=== PATIENT | male | born 1965 | race Hispanic/Latino ===

== ENCOUNTER 2020-09-30 10:32 | Emergency (ER) | payer MEDICARE ==
[2020-09-30] MEDS ORDERED: SODIUM CHLORIDE 0.9% 1000 ML 1,000 ML IV ONE (11:32)
[2020-09-30] MEDS ORDERED: NALOXONE 0.4 MG/1 ML INJ IV ONE (11:33)
--- NOTE | 2020-09-30 11:37 | Emergency Department Report ---
HPI - General Chief Complaint: Altered Mental Status Time Seen by Provider: 09/30/20 11:21 - HPI HPI: 55-year-old male with history of hypertension and substance abuse with frequent falls brought in by EMS from [facility] due to altered mental status. The patient was a voluntary admission for substance abuse and according to the EMS report staff found him on the ground at approximately 2 AM this morning. He is found to be altered but was assisted back to his room but with unsteady gait. The patient denied any pain or sy mptoms. Blood sugar per EMS was 114. When I speak to the patient, he is extremely somnolent and with slurred speech but when prompted persistently he is oriented x4. He admits to consuming alcohol. He is very difficult to understand due to his mumbling/slurred speech. He has no other obvious co mplaints or symptoms although details of the HPI are highly limited due to his current clinical condition. ED Past Medical Hx - Past Medical History Previous Medical History?: Yes Hx Hypertension: Yes Additional medical history: Substance abuse, frequent falls ED Review of Systems ROS: Stated complaint: FALL/MEDICAL CLEARANCE Other details as noted in HPI Comment: Unobtainable due to pts medical conditions Physical Exam - Physical Exam Vital Signs: Vital Signs 09/30/20 11:07 Temperature 97.5 F L Pulse Rate 71 Respiratory 16 Rate Blood Pressure 105/53 [Left] O2 Sat by Pulse 94 Oximetry Physical Exam: GENERAL: Well developed and well nourished. Extremely somnolent but arousable to very loud voice or firm touch. HEAD: Normocephalic. No obvious signs of trauma. ENT: Very dry mucous membranes. Plethoric face. EYES: Extraocular movements are intact. Pupils are constricted but reactive to light bilaterally. NECK: Supple. Full ROM is intact. Trachea is midline. LUNGS: Nonlabored breathing. Equal chest rise bilaterally. Clear to auscultation bilaterally. CARDIOVASCULAR: Regular rate and rhythm. No murmurs or rubs. VASCULAR: Cap refill < 2 seconds ABDOMEN: Abdomen is soft and nondistended. There is no significant tenderness, guarding or rebound. SKIN: Skin is warm and dry. There are nonspecific excoriated scattered erythematous papules noted to the bilateral lower aspects of the abdomen in the skin folds. NEURO: Patient is extremely somnolent but arousable to loud voice, firm touch, or pain. He is oriented x4 when prompted persistently to answer. He has slurred speech. Otherwise parts person II-XII are grossly intact. No focal deficits. Normal motor and sensory exam throughout. Gait exam deferred MUSCULOSKELETAL: No obvious deformities. No significant tenderness. Normal ROM t hroughout. BACK/SPINE: No midline tenderness or step-offs of the C/T/L spine. No costovertebral angle tenderness. ED Course Vital Signs 09/30/20 11:07 Temperature 97.5 F L Pulse Rate 71 Respiratory 16 Rate Blood Pressure 105/53 [Left] O2 Sat by Pulse 94 Oximetry ED Medical Decision Making - Lab Data Result diagrams: 09/30/20 12:16 09/30/20 12:16 Lab Results 09/30/20 09/30/20 09/30/20 Range/Units 12:16 12:16 12:16 WBC 9.5 (4.5-11.0) K/mm3 RBC 3.79 (3.65-5.03) M/mm3 Hgb 13.1 (11.8-15.2) gm/dl Hct 37.6 (35.5-45.6) % MCV 99 H (84-94) fl MCH 35 H (28-32) pg MCHC 35 H (32-34) % RDW 13.4 (13.2-15.2) % Plt Count 209 (140-440) K/mm3 Lymph % (Auto) 16.5 (13.4-35.0) % [place] % (Auto) 12.2 H (0.0-7.3) % Eos % (Auto) 2.9 (0.0-4.3) % Baso % (Auto) 0.6 (0.0-1.8) % Lymph # (Auto) 1.6 (1.2-5.4) K/mm3 [place] # (Auto) 1.2 H (0.0-0.8) K/mm3 Eos # (Auto) 0.3 (0.0-0.4) K/mm3 Baso # (Auto) 0.1 (0.0-0.1) K/mm3 Seg Neutrophils % 67.8 (40.0-70.0) % Seg Neutrophils # 6.5 (1.8-7.7) K/mm3 PT 14.5 (12.2-14.9) Sec. INR 1.08 (0.87-1.13) APTT 30.3 (24.2-36.6) Sec. Sodium 143 (137-145) mmol/L Potassium 3.6 (3.6-5.0) mmol/L Chloride 105.4 (98-107) mmol/L Carbon Dioxide 27 (22-30) mmol/L Anion Gap 14 mmol/L BUN 14 (9-20) mg/dL Creatinine 0.7 L (0.8-1.3) mg/dL Estimated GFR > 60 ml/min BUN/Creatinine Ratio 20 % Glucose 78 (75-100) mg/dL POC Glucose (70-105) mg/dL Calcium 9.3 (8.4-10.2) mg/dL Magnesium 2.10 (1.7-2.3) mg/dL Total Bilirubin 0.40 (0.1-1.2) mg/dL Direct Bilirubin < 0.2 (0-0.2) mg/dL Indirect Bilirubin 0.2 mg/dL AST 26 (5-40) units/L ALT 25 (7-56) units/L Alkaline Phosphatase 78 (35-129) units/L Ammonia (25-60) umol/L Troponin T < 0.010 (0.00-0.029) ng/mL Total Protein 6.6 (6.3-8.2) g/dL Albumin 4.1 (3.9-5) g/dL Albumin/Globulin Ratio 1.6 % Lipase 39 (13-60) units/L Urine Color (Yellow) Urine Turbidity (Clear) Urine pH (5.0-7.0) Ur Specific [place] (1.003-1.030) Urine Protein (Negative) mg/dL Urine Glucose (UA) (Negative) mg/dL Urine Ketones (Negative) mg/dL Urine Blood (Negative) Urine Nitrite (Negative) Urine Bilirubin (Negative) Urine Urobilinogen (<2.0) mg/dL Ur Leukocyte Esterase (Negative) Urine WBC (Auto) (0.0-6.0) /HPF Urine RBC (Auto) (0.0-6.0) /HPF Urine Mucus /HPF Salicylates (2.8-20.0) mg/dL Urine Opiates Screen Urine Methadone Screen Acetaminophen (10.0-30.0) ug/mL Ur Barbiturates Screen Ur Phencyclidine Scrn Ur Amphetamines Screen U Benzodiazepines Scrn Urine Cocaine Screen U Marijuana (THC) Screen Drugs of Abuse Note Plasma/Serum Alcohol (0-0.07) % 09/30/20 09/30/20 09/30/20 Range/Units 12:16 12:16 12:16 WBC (4.5-11.0) K/mm3 RBC (3.65-5.03) M/mm3 Hgb (11.8-15.2) gm/dl Hct (35.5-45.6) % MCV (84-94) fl MCH (28-32) pg MCHC (32-34) % RDW (13.2-15.2) % Plt Count (140-440) K/mm3 Lymph % (Auto) (13.4-35.0) % [place] % (Auto) (0.0-7.3) % Eos % (Auto) (0.0-4.3) % Baso % (Auto) (0.0-1.8) % Lymph # (Auto) (1.2-5.4) K/mm3 [place] # (Auto) (0.0-0.8) K/mm3 Eos # (Auto) (0.0-0.4) K/mm3 Baso # (Auto) (0.0-0.1) K/mm3 Seg Neutrophils % (40.0-70.0) % Seg Neutrophils # (1.8-7.7) K/mm3 PT (12.2-14.9) Sec. INR (0.87-1.13) APTT (24.2-36.6) Sec. Sodium (137-145) mmol/L Potassium (3.6-5.0) mmol/L Chloride (98-107) mmol/L Carbon Dioxide (22-30) mmol/L Anion Gap mmol/L BUN (9-20) mg/dL Creatinine (0.8-1.3) mg/dL Estimated GFR ml/min BUN/Creatinine Ratio % Glucose (75-100) mg/dL POC Glucose (70-105) mg/dL Calcium (8.4-10.2) mg/dL Magnesium (1.7-2.3) mg/dL Total Bilirubin (0.1-1.2) mg/dL Direct Bilirubin (0-0.2) mg/dL Indirect Bilirubin mg/dL AST (5-40) units/L ALT (7-56) units/L Alkaline Phosphatase (35-129) units/L Ammonia 28.0 (25-60) umol/L Troponin T (0.00-0.029) ng/mL Total Protein (6.3-8.2) g/dL Albumin (3.9-5) g/dL Albumin/Globulin Ratio % Lipase (13-60) units/L Urine Color (Yellow) Urine Turbidity (Clear) Urine pH (5.0-7.0) Ur Specific [place] (1.003-1.030) Urine Protein (Negative) mg/dL Urine Glucose (UA) (Negative) mg/dL Urine Ketones (Negative) mg/dL Urine Blood (Negative) Urine Nitrite (Negative) Urine Bilirubin (Negative) Urine Urobilinogen (<2.0) mg/dL Ur Leukocyte Esterase (Negative) Urine WBC (Auto) (0.0-6.0) /HPF Urine RBC (Auto) (0.0-6.0) /HPF Urine Mucus /HPF Salicylates < 0.3 L (2.8-20.0) mg/dL Urine Opiates Screen Urine Methadone Screen Acetaminophen 5.0 L (10.0-30.0) ug/mL Ur Barbiturates Screen Ur Phencyclidine Scrn Ur Amphetamines Screen U Benzodiazepines Scrn Urine Cocaine Screen U Marijuana (THC) Screen Drugs of Abuse Note Plasma/Serum Alcohol (0-0.07) % 09/30/20 09/30/20 09/30/20 Range/Units 12:16 16:25 17:53 WBC (4.5-11.0) K/mm3 RBC (3.65-5.03) M/mm3 Hgb (11.8-15.2) gm/dl Hct (35.5-45.6) % MCV (84-94) fl MCH (28-32) pg MCHC (32-34) % RDW (13.2-15.2) % Plt Count (140-440) K/mm3 Lymph % (Auto) (13.4-35.0) % [place] % (Auto) (0.0-7.3) % Eos % (Auto) (0.0-4.3) % Baso % (Auto) (0.0-1.8) % Lymph # (Auto) (1.2-5.4) K/mm3 [place] # (Auto) (0.0-0.8) K/mm3 Eos # (Auto) (0.0-0.4) K/mm3 Baso # (Auto) (0.0-0.1) K/mm3 Seg Neutrophils % (40.0-70.0) % Seg Neutrophils # (1.8-7.7) K/mm3 PT (12.2-14.9) Sec. INR (0.87-1.13) APTT (24.2-36.6) Sec. Sodium (137-145) mmol/L Potassium (3.6-5.0) mmol/L Chloride (98-107) mmol/L Carbon Dioxide (22-30) mmol/L Anion Gap mmol/L BUN (9-20) mg/dL Creatinine (0.8-1.3) mg/dL Estimated GFR ml/min BUN/Creatinine Ratio % Glucose (75-100) mg/dL POC Glucose 82 (70-105) mg/dL Calcium (8.4-10.2) mg/dL Magnesium (1.7-2.3) mg/dL Total Bilirubin (0.1-1.2) mg/dL Direct Bilirubin (0-0.2) mg/dL Indirect Bilirubin mg/dL AST (5-40) units/L ALT (7-56) units/L Alkaline Phosphatase (35-129) units/L Ammonia (25-60) umol/L Troponin T (0.00-0.029) ng/mL Total Protein (6.3-8.2) g/dL Albumin (3.9-5) g/dL Albumin/Globulin Ratio % Lipase (13-60) units/L Urine Color Yellow (Yellow) Urine Turbidity Clear (Clear) Urine pH 6.0 (5.0-7.0) Ur Specific [place] 1.012 (1.003-1.030) Urine Protein <15 mg/dl (Negative) mg/dL Urine Glucose (UA) Neg (Negative) mg/dL Urine Ketones Neg (Negative) mg/dL Urine Blood Neg (Negative) Urine Nitrite Neg (Negative) Urine Bilirubin Neg (Negative) Urine Urobilinogen < 2.0 (<2.0) mg/dL Ur Leukocyte Esterase Neg (Negative) Urine WBC (Auto) < 1.0 (0.0-6.0) /HPF Urine RBC (Auto) 2.0 (0.0-6.0) /HPF Urine Mucus Few /HPF Salicylates (2.8-20.0) mg/dL Urine Opiates Screen Urine Methadone Screen Acetaminophen (10.0-30.0) ug/mL Ur Barbiturates Screen Ur Phencyclidine Scrn Ur Amphetamines Screen U Benzodiazepines Scrn Urine Cocaine Screen U Marijuana (THC) Screen Drugs of Abuse Note Plasma/Serum Alcohol < 0.01 (0-0.07) % 09/30/20 Range/Units 17:53 WBC (4.5-11.0) K/mm3 RBC (3.65-5.03) M/mm3 Hgb (11.8-15.2) gm/dl Hct (35.5-45.6) % MCV (84-94) fl MCH (28-32) pg MCHC (32-34) % RDW (13.2-15.2) % Plt Count (140-440) K/mm3 Lymph % (Auto) (13.4-35.0) % [place] % (Auto) (0.0-7.3) % Eos % (Auto) (0.0-4.3) % Baso % (Auto) (0.0-1.8) % Lymph # (Auto) (1.2-5.4) K/mm3 [place] # (Auto) (0.0-0.8) K/mm3 Eos # (Auto) (0.0-0.4) K/mm3 Baso # (Auto) (0.0-0.1) K/mm3 Seg Neutrophils % (40.0-70.0) % Seg Neutrophils # (1.8-7.7) K/mm3 PT (12.2-14.9) Sec. INR (0.87-1.13) APTT (24.2-36.6) Sec. Sodium (137-145) mmol/L Potassium (3.6-5.0) mmol/L Chloride (98-107) mmol/L Carbon Dioxide (22-30) mmol/L Anion Gap mmol/L BUN (9-20) mg/dL Creatinine (0.8-1.3) mg/dL Estimated GFR ml/min BUN/Creatinine Ratio % Glucose (75-100) mg/dL POC Glucose (70-105) mg/dL Calcium (8.4-10.2) mg/dL Magnesium (1.7-2.3) mg/dL Total Bilirubin (0.1-1.2) mg/dL Direct Bilirubin (0-0.2) mg/dL Indirect Bilirubin mg/dL AST (5-40) units/L ALT (7-56) units/L Alkaline Phosphatase (35-129) units/L Ammonia (25-60) umol/L Troponin T (0.00-0.029) ng/mL Total Protein (6.3-8.2) g/dL Albumin (3.9-5) g/dL Albumin/Globulin Ratio % Lipase (13-60) units/L Urine Color (Yellow) Urine Turbidity (Clear) Urine pH (5.0-7.0) Ur Specific [place] (1.003-1.030) Urine Protein (Negative) mg/dL Urine Glucose (UA) (Negative) mg/dL Urine Ketones (Negative) mg/dL Urine Blood (Negative) Urine Nitrite (Negative) Urine Bilirubin (Negative) Urine Urobilinogen (<2.0) mg/dL Ur Leukocyte Esterase (Negative) Urine WBC (Auto) (0.0-6.0) /HPF Urine RBC (Auto) (0.0-6.0) /HPF Urine Mucus /HPF Salicylates (2.8-20.0) mg/dL Urine Opiates Screen Negative Urine Methadone Screen Negative Acetaminophen (10.0-30.0) ug/mL Ur Barbiturates Screen Negative Ur Phencyclidine Scrn Negative Ur Amphetamines Screen Negative U Benzodiazepines Scrn Positive Urine Cocaine Screen Negative U Marijuana (THC) Screen Negative Drugs of Abuse Note Disclamer Plasma/Serum Alcohol (0-0.07) % - EKG Data -: EKG Interpreted by Ga - EKG Data 09/30/20 14:28 Normal sinus rhythm. Normal axis. Nonspecific intraventricular conduction delay. Otherwise intervals. No ectopy. No significant ST segment or T wave abnormalities. - Radiology Data CHEST 1 VIEW INDICATION / CLINICAL INFORMATION: ams. COMPARISON: None available. FINDINGS: SUPPORT DEVICES: None. HEART / MEDIASTINUM: Sternotomy. Cardiac size is within normal limits. LUNGS / PLEURA: Low lung volumes. Mild bibasilar opacities may represent atelectasis. I cannot entirely exclude pneumonia but thought to be less likely. No pleural effusion. Upper lung anne are clear. No pneumothorax. ADDITIONAL FINDINGS: No significant additional findings. IMPRESSION: 1. Low lung volumes. Patient reportedly asleep during acquisition of chest radiograph. 2. Mild bibasilar pulmonary opacities. This is probably atelectasis given the low lung volumes. Signer Name: Cindy Mixon MD Signed: 09/30/2020 10:54 AM Workstation Name: [id number] CT HEAD WITHOUT CONTRAST INDICATION / CLINICAL INFORMATION: AMS r/o ICH. T ECHNIQUE: All CT scans at this location are performed using CT dose reduction for ALARA by means of automated exposure control. COMPARISON: None available. FINDINGS: HEMORRHAGE: No evidence of intracranial hemorrhage or extra-axial fluid collection. EXTRA-AXIAL SPACES: Cortical sulci, sylvian fissures and basilar cisterns have an unremarkable appearance. VENTRICULAR SYSTEM: The third and lateral ventricles are of normal size and configuration. CEREBRAL PARENCHYMA: No areas of abnormal brain parenchymal attenuation are identified. There is no indication of recent infarction. MIDLINE SHIFT OR HERNIATION: There is no mass effect. CEREBELLUM / BRAINSTEM: Brainstem and cerebellum have an unremarkable appearance. MIDLINE STRUCTURES:No abnormalities of the pituitary gland or pineal region are identified. INTRACRANIAL VESSELS:No abnormalities are identified on this noncontrast head CT. ORBITS: visualized portions of the orbits have an unremarkable appearance. SOFT TISSUES of HEAD: No significant abnormality. CALVARIUM: Evaluation of bone windows reveals no abnormalities. PARANASAL SINUSES / MASTOID AIR CELLS: An air-fluid level is seen in the dependent portion of the right maxillary sinus. Mild mucosal thickening is noted at the base of the left maxillary sinus. Visualized portions of the paranasal sinuses are otherwise free from inflammatory mucosal disease. Mastoid air cells are normally pneumatized. IMPRESSION: 1. No significant intracranial abnormality. Signer Name: Chemo Goetz MD Signed: 09/30/2020 11:11 AM Workstation Name: [id number] Addendum report: I discussed the findings of this study with Dr. Avendaño, the patient's [facility] emergency room physician. Primary differential diagnostic considerations for the lytic lesion in the C6 vertebral body include unicameral bone cyst and aneurysmal bone cyst. Possibility of primary or secondary lytic neoplasm is also considered. Elective evaluation with MRI cervical spine without and with contrast is recommended for further evaluation. Signer Name: Chemo Goetz MD Signed: 09/30/2020 12:12 PM Workstation Name: [id number] CT CERVICAL SPINE WITHOUT CONTRAST INDICATION / CLINICAL INFORMATION: Possible neck injury. TECHNIQUE: Axial CT images were obtained through the cervical spine. Sagittal and coronal reformatted images were produced. All CT scans at this location are performed using CT dose reduction for ALARA by means of automated exposure control. COMPARISON: None available. FINDINGS: ALIGNMENT: No significant abnormality. VERTEBRAE: A large well- circumscribed lytic lesion is present in the C6 vertebral body. A smaller similar findings present and T7. These findings are adjacent to the vertebral endplates. There is no associated endplate defect. Correlation with MRI cervical spine to be performed without and with contrast is suggested. Widespread degenerative changes are present. Vertebral morphology is otherwise fairly well- maintained. DISC SPACES: Loss of disc height is noted at the C5-6 and C6-7 levels were near complete loss of disc height is noted and where reactive changes secondary to degenerative disc disease are observed the adjacent endplates. INDIVIDUAL LEVEL ANALYSIS: C2-3:No abnormality. C3-4:No abnormality. C4-5:No abnormality. C5-6:Loss of disc height is noted. Uncovertebral arthropathy is present bilaterally. There is moderate bilateral ne uroforaminal stenosis. Posterior disc osteophyte complex is observed. This is associated with mild central canal stenosis. C6-7: Loss of disc height is noted. Anterior osteophyte formation is observed. Bilateral uncovertebral arthropathy is present. Moderate left-sided and mild right-sided neuroforaminal stenosis is observed. Central spinal canal is adequate in size. C7-T1: Right worse than left facet arthritic changes are noted. Central spinal canal and neuroforamina are adequately maintained. CRANIOCERVICAL JUNCTION:No significant abnormality. SPINAL CANAL: Mild central canal stenosis is evident at the C5-6 level. Central spinal canal is otherwise adequately maintained throughout. PARASPINAL SOFT TISSUES: No significant abnormality. LUNG APICES: No significant abnormality of visualized lungs. IMPRESSION: 1. Recommend MRI cervical spine without and with intravenous contrast for further evaluation of a well-circumscribed lytic lesion in the C6 vertebral body. 2. Degenerative ch anges of loss of disc height and uncovertebral arthropathy contribute to neural foraminal stenosis at the C5-6 and C6-7 levels. 3. Mild central canal stenosis is evident at C5-6. Signer Name: Chemo Goetz MD Signed: 09/30/2020 11:19 AM Workstation Name: [id number] - Medical Decision Making 55-year-old male with history of hypertension and substance abuse brought in [facility] where he was admitted voluntarily for substance abuse after he was found down on the ground at 2 AM this morning. He was noted to be with altered mental status and unsteady gait and was sent to the emergency department for further evaluation. On my assessment, he is afebrile and with grossly normal vital signs. He is extremely somnolent but does arouse to loud voice, or firm to touch. He is oriented x4. He tells me that he drank alcohol. He does have very slurred speech and I am unable to understand the rest of his speech. Physical exam reveals an unkempt male with very dry mucous membranes and plethoric face. He does have slightly pinpoint pupils but they are reactive bilaterally. He has very dry mucous membranes. Although he is extremely somnolent and slow to respond or follow to commands he does have a nonfocal neurologic exam. His neck is supple. The remainder of his physical exam is without significant abnormalities. Given that the patient has altered mental status and details of the HPI are limited we will perform broad work-up with a full set of labs, EKG, chest x-ray, and CT of the head and C-spine to assess for evidence of intracranial hemorrhage or fracture given the patient is either altered or intoxicated and the patient was found on the ground suggesting possible trauma. We will give 1 L of IV fluid and 1 banana bag and continue to monitor the patient very closely. On repeat assessment at 1330, the patient remains very somnolent but is now more awake. He continues to have mumbling and slurred speech. Labs have resulted and reveal no leukocytosis or anemia. Creatinine is within normal limits and there are no significant electrolyte abnormalities. Ammonia is normal. Troponin is negative. Acetaminophen and salicylate levels are negative. Alcohol level is negative. Urinalysis/UDS are still pending. Chest x-ray shows low lung volumes and likely atelectasis at the bases. CT of the head reveals no acute abnormalities. CT of the cervical spine reveals finding of well-circumscribed lytic lesion of the C6 vertebrae with recommendation for an MRI with and without contrast for further elucidation. At 1305 I personally spoke to the reading radiologist over the phone regarding the read. He states that he thinks the lytic lesion may be a simple bone cyst versus metastasis from malignancy and says that his recommendation for an MRI could be done as an outpatient if there is no need for admission. At 1415, on repeat assessment, the patient is now sitting up and fully awake. 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 He continues to to have very slurred speech which is unintelligible despite the fact that he is oriented x4. He is tells me that he was voluntarily admitted to his behavioral health facility for alcohol withdrawal. He denies use of any other drugs or substances. He does not remember passing out or how he ended up on the floor. Given that he continues with very slurred speech and altered mental status he will need to be admitted for further work-up and management. At 3:30 PM I spoke with Dr. Noriega, the on-call hospitalist regarding the case. He says he will assume care of the patient and come assess the patient himself to determine further disposition. Critical care attestation.: If time is entered above; I have spent that time in minutes in the direct care of this critically ill patient, excluding procedure time. ED Disposition Clinical Impression: Syncope, Altered mental state, Slurring of speech, Abnormal CT scan, cervical spine Disposition: DC-01 TO HOME OR SELFCARE Is pt being admited?: Yes Condition: Stable Instructions: Syncope (ED) Referrals: PRIMARY CARE, [Primary Care Provider] - 3-5 Days
--- NOTE | 2020-09-30 11:59 | XRay Report ---
CHEST 1 VIEW INDICATION / CLINICAL INFORMATION: ams. COMPARISON: None available. FINDINGS: SUPPORT DEVICES: None. HEART / MEDIASTINUM: Sternotomy. Cardiac size is within normal limits. LUNGS / PLEURA: Low lung volumes. Mild bibasilar opacities may represent atelectasis. I cannot entire ly exclude pneumonia but thought to be less likely. No pleural effusion. Upper lung anne are clear. No pneumothorax. ADDITIONAL FINDINGS: No significant additional findings. IMPRESSION: 1. Low lung volumes. Patient reportedly asleep during acquisition of chest radiograph. 2. Mild bibasilar pulmonary opacities. This is probably atelectasis given the low lung volumes. Signer Name: Cindy Mixon MD Signed: 09/30/2020 11:54 AM Workstation Name: [id number]
--- NOTE | 2020-09-30 12:16 | Cat Scan Report ---
CT HEAD WITHOUT CONTRAST INDICATION / CLINICAL INFORMATION: AMS r/o ICH. TECHNIQUE: All CT scans at this location are performed using CT dose reduction for ALARA by means of automated e xposure control. COMPARISON: None available. FINDINGS: HEMORRHAGE: No evidence of intracranial hemorrhage or extra-axial fluid collection. EXTRA-AXIAL SPACES: Cortical sulci, sylvian fissures and basilar cisterns have an unremarkable appear ance. VENTRICULAR SYSTEM: The third and lateral ventricles are of normal size and configuration. CEREBRAL PARENCHYMA: No areas of abnormal brain parenchymal attenuation are identified. There is no i ndication of recent infarction. MIDLINE SHIFT OR HERNIATION: There is no mass effect. CEREBELLUM / BRAINSTEM: Brainstem and cerebellum have an unremarkable appearance. MIDLINE STRUCTURES:No abnormalities of the pituitary gland or pineal region are identified. INTRACRANIAL VESSELS:No abnormalities are identified on this noncontrast head CT. ORBITS: visualized portions of the orbits have an unremarkable appearance. SOFT TISSUES of HEAD: No significant abnormality. CALVARIUM: Evaluation of bone windows reveals no abnormalities. PARANASAL SINUSES / MASTOID AIR CELLS: An air-fluid level is seen in the dependent portion of the rig ht maxillary sinus. Mild mucosal thickening is noted at the base of the left maxillary sinus. Visuali zed portions of the paranasal sinuses are otherwise free from inflammatory mucosal disease. Mastoid a ir cells are normally pneumatized. IMPRESSION: 1. No significant intracranial abnormality. Signer Name: Chemo Goetz MD Signed: 09/30/2020 12:11 PM Workstation Name: [id number]
--- NOTE | 2020-09-30 12:24 | Cat Scan Report ---
CT CERVICAL SPINE WITHOUT CONTRAST INDICATION / CLINICAL INFORMATION: Possible neck injury. TECHNIQUE: Axial CT images were obtained through the cervical spine. Sagittal and coronal reformatted images wer e produced. All CT scans at this location are performed using CT dose reduction for ALARA by means of automated exposure control. COMPARISON: None available. FINDINGS: ALIGNMENT: No significant abnormality. VERTEBRAE: A large well-circumscribed lytic lesion is present in the C6 vertebral body. A smaller sim ilar findings present and T7. These findings are adjacent to the vertebral endplates. There is no ass ociated endplate defect. Correlation with MRI cervical spine to be performed without and with contras t is suggested. Widespread degenerative changes are present. Vertebral morphology is otherwise fairl y well-maintained. DISC SPACES: Loss of disc height is noted at the C5-6 and C6-7 levels were near complete loss of disc height is noted and where reactive changes secondary to degenerative disc disease are observed the a djacent endplates. INDIVIDUAL LEVEL ANALYSIS: C2-3:No abnormality. C3-4:No abnormality. C4-5:No abnormality. C5-6:Loss of disc height is noted. Uncovertebral arthropathy is present bilaterally. There is moderat e bilateral neuroforaminal stenosis. Posterior disc osteophyte complex is observed. This is associate d with mild central canal stenosis. C6-7: Loss of disc height is noted. Anterior osteophyte formation is observed. Bilateral uncovertebra l arthropathy is present. Moderate left-sided and mild right-sided neuroforaminal stenosis is observe d. Central spinal canal is adequate in size. C7-T1: Right worse than left facet arthritic changes are noted. Central spinal canal and neuroforamin a are adequately maintained. CRANIOCERVICAL JUNCTION:No significant abnormality. SPINAL CANAL: Mild central canal stenosis is evident at the C5-6 level. Central spinal canal is other jang adequately maintained throughout. PARASPINAL SOFT TISSUES: No significant abnormality. LUNG APICES: No significant abnormality of visualized lungs. IMPRESSION: 1. Recommend MRI cervical spine without and with intravenous contrast for further evaluation of a wel l-circumscribed lytic lesion in the C6 vertebral body. 2. Degenerative changes of loss of disc height and uncovertebral arthropathy contribute to neural for aminal stenosis at the C5-6 and C6-7 levels. 3. Mild central canal stenosis is evident at C5-6. Signer Name: Chemo Goetz MD Signed: 09/30/2020 12:19 PM Workstation Name: [id number]
[2020-09-30] MEDS ORDERED: THIAMINE 100 MG, FOLIC ACID 1 MG, MULTIPLE VITAMIN INJ, ADULT 10 ML in SODIUM CHLORIDE ... IV ONE (12:30)
[2020-09-30 12:32] LABS: Basophils # (Auto) 0.1 K/mm3 (0.0-0.1); Basophils % (Auto) 0.6 % (0.0-1.8); Eosinophils # (Auto) 0.3 K/mm3 (0.0-0.4); Eosinophils % (Auto) 2.9 % (0.0-4.3); Hematocrit 37.6 % (35.5-45.6); Hemoglobin 13.1 gm/dl (11.8-15.2); Lymphocytes # (Auto) 1.6 K/mm3 (1.2-5.4); Lymphocytes % (Auto) 16.5 % (13.4-35.0); Mean Corpuscular HGB Conc 35 % (32-34); Mean Corpuscular Volume 99 fl (84-94); Monocytes # (Auto) 1.2 K/mm3 (0.0-0.8); Monocytes % (Auto) 12.2 % (0.0-7.3); Platelet Count 209 K/mm3 (140-440); Red Blood Count 3.79 M/mm3 (3.65-5.03); Red Cell Distribution Width 13.4 % (13.2-15.2)
[2020-09-30 12:42] LABS: INR 1.08 (0.87-1.13)
[2020-09-30 12:43] LABS: Partial Thromboplastin Time 30.3 Sec. (24.2-36.6)
[2020-09-30 12:54] LABS: Alanine Aminotransferase 25 units/L (7-56); Albumin 4.1 g/dL (3.9-5); Blood Urea Nitrogen 14 mg/dL (9-20); Calcium 9.3 mg/dL (8.4-10.2); Hemolysis Index 5
[2020-09-30 13:27] LABS: BUN/Creatinine Ratio 20; Bilirubin,Direct < 0.2 mg/dL (0-0.2)
[2020-09-30] MEDS ORDERED: LORazepam 2 MG/ML VIAL ONE (14:43)
--- NOTE | 2020-09-30 15:29 | Event Note ---
Date: 09/30/20 Patient seen and evaluated in the emergency room Patient is slightly lethargic Patient alert and oriented to time place and person Able to walk Electrolytes are normal Impression EtOH withdrawal Patient can be managed at [facility] Patient medically cleared to go back to [facility] No medications prescribed
[2020-09-30] MEDS ORDERED: LORazepam 2 MG/ML VIAL IV ONE (15:51)
[2020-09-30 15:53] VITALS: BP 154/93
[2020-09-30 18:59] LABS: Bilirubin,Urine NEG (Negative); Blood,Urine NEG (Negative); Color,Urine Yellow (Yellow); Mucus,Urine FEW /HPF; Protein,Urine <15 mg/dL mg/dL (Negative); Urobilinogen,Urine < 2.0 mg/dL (<2.0); WBC,Urine < 1.0 /HPF (0.0-6.0)
[2020-09-30 19:12] LABS: Amphetamine Screen,Urine Negative; Cannabinoid Screen,Urine Negative; Cocaine Screen,Urine Negative; Methadone Screen,Urine Negative; Opiate Screen,Urine Negative
[2020-09-30 19:28] LABS: Benzodiazepines Screen,Urine Positive
== END 2020-09-30 18:13 | disposition home or self-care (01) ==
LOC: ED 10:32
DX: R55 Syncope and collapse (principal); R41.82 Altered mental status, unspecified; R47.81 Slurred speech; I10 Essential (primary) hypertension
CPT/HCPCS: 36415; 70450; 71045; 72125; 80048; 80076; 80307; 81001; 82140; 82962; 83690; 83735; 84484; 85025; 85610; 85730; 96361; 96365; 96366; 96375; 99285; J2060; J2310; J3411; J7030; 80320; 99284; G0480